=== PATIENT | female | born 2000 | race Caucasian/White ===

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

== ENCOUNTER 2019-10-09 16:30 | Outpatient (REF) | payer BC, SELFPAY ==
[2019-10-13 14:49] LABS: Chlamydia Result Negative (Negative); GC Result Negative (Negative)
== END 2019-10-09 16:50 ==
LOC: LBN 16:30
PROVIDERS: PCP Nurse Practitioner Family; Visit Provider Nurse Practitioner Family
DX: Z11.3 Encounter for screening for infections with a predominantly sexual mode of transmission (principal)
CPT/HCPCS: 87491; 87591

== ENCOUNTER 2019-10-22 01:57 | Outpatient (CLI) | payer BC, SELFPAY ==
--- NOTE | 2019-10-22 07:00 | DI.US_ITS ---
EXAM: US PELVIS TRANSVAGINAL CLINICAL HISTORY: Pelvic pain - pt has IUD,r10.2 TECHNIQUE: Ultrasound performed using standard protocol. COMPARISON: No exams were available for comparison FINDINGS: Pelvic ultrasound was performed transabdominally and transvaginally. Note is made of IUD in the endo metrial cavity. Endometrial stripe is unremarkable in appearance and 3 millimeters in thickness. My ometrium is unremarkable. There is a small quantity of free pelvic fluid which is nonspecific and which may be physiologic. The ovaries are normal in size and show normal vascular flow. Left ovary has a normal follicular camelia earance. There is an approximately 15 millimeter in diameter cyst seen medial to the right ovary which could b e a parovarian cyst or cyst cyst associated with the fallopian tube. There is 2 centimeter in diamet er irregular mixed echogenicity finding in the right ovary which may represent a corpus luteum which is involuting. No other ovarian abnormality seen. Limited scanning of the kidneys is unremarkable. IMPRESSION: Possible small right fallopian tube or paraovarian cyst. Presumed involuting corpus luteum of the ri ght ovary. No significant additional findings. DATA REPOSITORY:
== END 2019-10-22 02:17 ==
PROVIDERS: PCP Nurse Practitioner Family; Visit Provider Nurse Practitioner Family
DX: R10.2 Pelvic and perineal pain (principal); Z97.5 Presence of (intrauterine) contraceptive device
CPT/HCPCS: 76830; 76856

== ENCOUNTER 2019-12-29 01:41 | Outpatient (CLI) | payer BC, SELFPAY ==
--- NOTE | 2019-12-29 06:45 | DI.US_ITS ---
EXAM: US PELVIS TRANSVAGINAL CLINICAL HISTORY: right ovarian cyst vs para ovarian cyst,,N83.201 TECHNIQUE: Transabdominal and transvaginal imaging was performed using standard protocol. COMPARISON: US US PELVIS TRANSVAGINAL from 10/22/2019 FINDINGS: KIDNEYS: Kidneys are symmetric in size. No evidence of renal calculi. No evidence of hydronephrosis. No renal mass or cyst identified. UTERUS: Anteverted. 6.7 x 3.4 x 5 cm. Endometrium: IUD is again noted and appears appropriately positioned. Endometrial stripe measurement 2 millimeters. Myometrium: Unremarkable. Cervix: Unremarkable. OVARIES: Right: Cyst or mass: A 2 centimeter simple appearing right paraovarian cyst is again noted. Left: Cyst or mass: None. DOPPLER: Color: Symmetric and uniform flow to both ovaries. No hyperemia. Duplex: Normal ovarian arterial waveforms visualized. CUL-DE-SAC: Free fluid: None. IMPRESSION: 1. Normal-appearing uterus with endometrial stripe within normal limits. 2. No change in 2 centimeter simple right para ovarian cyst.. DATA REPOSITORY:
== END 2019-12-29 02:01 ==
PROVIDERS: PCP Nurse Practitioner Family; Visit Provider Nurse Practitioner Family
DX: N83.291 Other ovarian cyst, right side (principal)
CPT/HCPCS: 76830; 76856

== ENCOUNTER 2020-11-10 03:07 | Outpatient (CLI) | payer BC, SELFPAY ==
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
== END 2020-11-10 03:08 | disposition home or self-care (01) ==
LOC: DS 03:07
PROVIDERS: PCP Nurse Practitioner Family; Visit Provider Dietitian, Registered
DX: F50.89 Other specified eating disorder (principal); Z71.3 Dietary counseling and surveillance
CPT/HCPCS: 97802

== ENCOUNTER 2020-11-15 13:48 | Outpatient (REF) | payer BC, SELFPAY ==
--- NOTE | 2020-11-15 13:00 | PAPFT_PTH ---
PATIENT: Mirella Whitmore LOC: [facility] U#:[id number] AGE/SX: 20/F ROOM: RE11/15/[address]: NATHAN Peace : 2000 BED: DIS: 11/15/2020 SPEC #: [id number] RECD: 11/15/20 18:21 STATUS: MIRELLA REQ #: [id number] PARKER: 11/15/20 13:[address]: Tessa Olvera DEPT: [facility] Cytology RECD BY: Dayanara Dockery ENTERED: 11/15/20 18:21 SP TYPE: PAPFT OTHR DR: Eloisa Lipscomb Tissues: 1 - CX/ENDOCX FOR PAP SMEARS Procedures: PAP THIN PREP/UVM Screening Comments: [id number]
[2020-11-16 13:48] LABS: Chlamydia Result Negative (Negative); GC Result Negative (Negative)
== END 2020-11-15 13:49 | disposition home or self-care (01) ==
LOC: LBN 13:48
PROVIDERS: PCP Nurse Practitioner Family; Visit Provider Nurse Practitioner Family
DX: Z12.4 Encounter for screening for malignant neoplasm of cervix (principal); Z11.3 Encounter for screening for infections with a predominantly sexual mode of transmission
CPT/HCPCS: 87491; 87591; 88142

== ENCOUNTER 2022-09-27 13:46 | Outpatient (REF) | payer BC, SELFPAY ==
[2022-09-28 13:13] LABS: Chlamydia Result Negative (Negative); GC Result Negative (Negative)
== END 2022-09-27 13:47 | disposition home or self-care (01) ==
LOC: LBN 13:46
PROVIDERS: PCP Nurse Practitioner Family; Visit Provider Nurse Practitioner Women's Health
DX: Z11.3 Encounter for screening for infections with a predominantly sexual mode of transmission (principal)
CPT/HCPCS: 87491; 87591

== ENCOUNTER 2022-12-12 12:45 | Outpatient (REF) | payer BC, SELFPAY ==
[2022-12-12 19:17] LABS: HCT 45.6 % (36.0-46.0); HGB 15.3 g/dL (11.2-15.7); MCH 30.2 pg (27.0-33.0); MCHC 33.6 % (32.0-36.0); MCV 90 fL (80-95); MPV 10.4 fL (8.0-11.0); Platelet Count 320 10^3/uL (130-400); RBC 5.06 10^6/uL (3.93-5.22); RDW-SD 39.5 fL; WBC 11.54 10^3/uL (4.4-10.8)
[2022-12-12 19:18] LABS: Bilirubin Negative (Negative); Blood Moderate (Negative); Clarity Cloudy (Clear); Glucose Negative (Negative); Ketones Negative (Negative); Leukocyte Esterase Negative (Negative); Nitrite Negative (Negative); Urobilinogen 0.2 mg/dL (Up to 0.2)
[2022-12-12 19:32] LABS: Bacteria Negative HPF (Negative); C & S Indicated? No; Crystals Moderate Amorphous HPF (Negative); Epithelial Cells Many HPF (Negative); Mucus Negative (Negative); WBC 0-2 HPF (0-5)
[2022-12-12 19:40] LABS: Anion Gap 7.4 mmol/L (3-11); BUN 15 mg/dL (7-18); CO2 26.6 mmol/L (21.0-32.0); CREATININE 0.7 mg/dL (0.55-1.02); Calcium 9.9 mg/dL (8.5-10.1); Chloride 101 mmol/L (98-107); Estimated GFR 124.55 (mL/min/1.73m2); Glucose 99 mg/dL (74-106); Potassium 4.3 mmol/L (3.5-5.1); Sodium 135 mmol/L (136-145)
[2022-12-13 18:13] LABS: Rheumatoid Factor <8.6 IU/mL (<12.0)
[2022-12-14 10:04] LABS: Lyme Ab w Rflx to Lyme Confirm Negative (Negative)
[2022-12-14 14:57] LABS: ANA Interpretation Negative (Negative)
[2022-12-15 21:09] LABS: Anaplasma phagocytophilum Negative (Negative); B. miyamotoi PCR Negative (Negative); Babesia divergens/MO-1 Negative (Negative); Babesia duncani Negative (Negative); Babesia microti Negative (Negative); Ehrlichia chaffeensis Negative (Negative); Ehrlichia ewingii/canis Negative (Negative); Ehrlichia muris eauclairensis Negative (Negative)
== END 2022-12-12 12:46 | disposition home or self-care (01) ==
LOC: NCHCN 12:45
PROVIDERS: PCP Nurse Practitioner Family; Visit Provider Nurse Practitioner Family
DX: G89.29 Other chronic pain (principal); R53.83 Other fatigue; R35.89 Other polyuria
CPT/HCPCS: 80048; 85027; 87798; 81003; 81015; 84443; 86038; 86431; 86618

== ENCOUNTER 2023-10-04 12:37 | Emergency (ER) | payer BC, SELFPAY ==
[2023-10-04 12:40] VITALS: BP 168/101; PULSE 80; RESP 20; TEMP 36.9; O2SAT 98
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
[2023-10-04 13:22] LABS: Absolute Eosinophil Count 0.01 10^3/uL (0.0-0.7); Absolute Lymphocyte Count 1.38 10^3/uL (1.2-3.4); Absolute Monocyte Count 0.91 10^3/uL (0.1-0.8); Absolute Neutrophil Count 11.96 10^3/uL (1.2-6.7); Basophils % 0.3 %; Eosinophils % 0.1 %; HCT 45.2 % (36.0-46.0); HGB 15.2 g/dL (11.2-15.7); Immature Grans % 0.7 %; Lymphocytes % 9.6 %; MCH 30.5 pg (27.0-33.0); MCHC 33.6 % (32.0-36.0); MCV 91 fL (80-95); MPV 10.3 fL (8.0-11.0); Monocytes % 6.3 %; Platelet Count 263 10^3/uL (130-400); RBC 4.98 10^6/uL (3.93-5.22); RDW 12.7 % (11.7-14.6); RDW-SD 41.9 fL; WBC 14.41 10^3/uL (4.4-10.8)
[2023-10-04 13:24] LABS: Absolute Basophil Count 0.04 10^3/uL (0.0-0.2)
[2023-10-04 13:35] LABS: ALT 35 U/L (14-59); AST 33 U/L (15-37); Albumin 4.2 g/dL (3.4-5.0); Alkaline Phosphatase 93 U/L (46-116); Anion Gap 7.9 mmol/L (3-11); BUN 13 mg/dL (7-18); Bilirubin, Total 0.31 mg/dL (0.2-1.0); CO2 27.1 mmol/L (21.0-32.0); CREATININE 0.8 mg/dL (0.55-1.02); Calcium 9.4 mg/dL (8.5-10.1); Chloride 102 mmol/L (98-107); Estimated GFR 105.45 (mL/min/1.73m2); Glucose 115 mg/dL (74-106); Sodium 137 mmol/L (136-145)
[2023-10-04 13:45] LABS: HCG Qual (Serum) Negative
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
[2023-10-04] MEDS: Omnipaque 350 MG/ML 100 ML BTL IJ (14:48)
[2023-10-04] MEDS: Normal Saline - Diluent 50 ML VIAL IJ (14:49)
[2023-10-04] MEDS: Ondansetron 4 MG/2 ML VIAL IVP (14:59)
[2023-10-04] MEDS: ACETAMINOPHEN 1,000 MG/100 ML BTL 400 MG IVPB (14:59)
[2023-10-04 15:36] VITALS: BP 168/80; PULSE 80; RESP 16; TEMP 36.6; O2SAT 99
== END 2023-10-04 15:38 | disposition home or self-care (01) ==
PROVIDERS: Emergency Provider Student in an Organized Health Care Education/Training Program; PCP Nurse Practitioner Family
DX: S13.9XXA Sprain of joints and ligaments of unspecified parts of neck, initial encounter (principal); V48.5XXA Car driver injured in noncollision transport accident in traffic accident, initial encounter
CPT/HCPCS: 74177; 80053; 86850; 86900; 86901; 96374; 96375; 99285; 70450; 71260; 72125; 84703; 85025; 99283; J0131; J2405; J3490

== ENCOUNTER 2024-06-19 15:04 | Outpatient (REF) | payer BC, SELFPAY ==
[2024-06-22 09:45] LABS: HIV-1/2 Ag & Ab Screen Negative (Negative)
[2024-06-23 09:16] LABS: HBs Antibody, Quant <3.1 mIU/mL (See Note); Hepatitis B Surface Ab Negative (See Note)
[2024-06-23 10:13] LABS: Hepatitis C Ab w Rflx HCV PCR Negative (Negative)
[2024-06-23 12:15] LABS: Chlamydia Result Negative (Negative); GC Result Negative (Negative)
[2024-06-23 12:36] LABS: Syphilis Serology (RPR) Negative (Negative)
== END 2024-06-19 15:05 | disposition home or self-care (01) ==
LOC: NCHCN 15:04
PROVIDERS: PCP Nurse Practitioner Family; Visit Provider Family Medicine
DX: Z11.3 Encounter for screening for infections with a predominantly sexual mode of transmission (principal)
CPT/HCPCS: 86706; 86803; 87340; 87389; 87491; 87591; 86592

== ENCOUNTER 2024-09-11 18:24 | Outpatient (REF) | payer BC, SELFPAY ==
[2024-09-11 21:26] LABS: ALT 30 U/L (14-59); AST 15 U/L (15-37); Albumin 4.1 g/dL (3.4-5.0); Alkaline Phosphatase 83 U/L (46-116); Anion Gap 3.4 mmol/L (3-11); BUN 16 mg/dL (7-18); Bilirubin, Total 0.2 mg/dL (0.2-1.0); CO2 30.6 mmol/L (21.0-32.0); Calcium 9.8 mg/dL (8.5-10.1); Chloride 102 mmol/L (98-107); Estimated GFR 123.78 (mL/min/1.73m2); Glucose 87 mg/dL (74-106); Potassium 4.3 mmol/L (3.5-5.1); Sodium 136 mmol/L (136-145); Total Protein 7.8 g/dL (6.4-8.2)
== END 2024-09-11 18:25 | disposition home or self-care (01) ==
LOC: NCHCN 18:24
PROVIDERS: PCP Nurse Practitioner Family; Visit Provider Family Medicine
DX: F19.90 Other psychoactive substance use, unspecified, uncomplicated (principal)
CPT/HCPCS: 80053